=== PATIENT | male | born 1945 | race Caucasian/White ===

== ENCOUNTER 2019-08-08 05:58 | Emergency (ER) | payer MEDICARE, OTHER ==
[2019-08-08 07:43] LABS: ABSOLUTE EOSINOPHILS # (AUTO) 0.1 10^3/uL (0.0-0.6); ABSOLUTE LYMPHOCYTES (AUTO) 1.2 10^3/uL (0.5-4.7); ABSOLUTE MONOCYTES (AUTO) 0.8 10^3/uL (0.1-1.4); ABSOLUTE NEUT (AUTO) 5.5 10^3/uL (1.7-8.2); BASOPHILS % (AUTO) 0.4 % (0-2); EOSINOPHILS % (AUTO) 1.5 % (0-6); HEMATOCRIT 36.3 % (37.9-51.0); HEMOGLOBIN 12.7 g/dL (13.5-17.0); MEAN CORPUSCULAR HEMOGLOBIN 31.3 pg (27.0-33.4); MEAN CORPUSCULAR HGB CONC 35.1 g/dL (32.0-36.0); MEAN CORPUSCULAR VOLUME 89 fl (80-97); MONOCYTES % (AUTO) 10.1 % (3-13); PLATELET COUNT 261 10^3/uL (150-450); RED BLOOD COUNT 4.07 10^6/uL (4.35-5.55); RED CELL DISTRIBUTION WIDTH 13.9 % (11.5-14.0); TOTAL CELLS COUNTED % (AUTO) 100 %; WHITE BLOOD COUNT 7.6 10^3/uL (4.0-10.5)
[2019-08-08 07:58] LABS: ALBUMIN 3.7 g/dL (3.5-5.0); ALKALINE PHOSPHATASE 105 U/L (38-126); ANION GAP 8 (5-19); ASPARTATE AMINO TRANSFERASE 26 U/L (17-59); BILIRUBIN,DIRECT 0.1 mg/dL (0.0-0.4); BILIRUBIN,TOTAL 0.5 mg/dL (0.2-1.3); BLOOD UREA NITROGEN 15 mg/dL (7-20); CARBON DIOXIDE 25 mmol/L (22-30); CHLORIDE 107 mmol/L (98-107); CREATINE KINASE 49 U/L (55-170); GLUCOSE 104 mg/dL (75-110); POTASSIUM 4.4 mmol/L (3.6-5.0); TOTAL PROTEIN 6.8 g/dL (6.3-8.2)
[2019-08-08 08:09] LABS: CREATINE KINASE MB 0.72 ng/mL (<4.55)
[2019-08-08 08:14] LABS: TROPONIN I < 0.012 ng/mL
--- NOTE | 2019-08-08 08:40 | RADIOLOGY REPORT (SQ) ---
EXAM DESCRIPTION: CHEST SINGLE VIEW COMPLETED DATE/TIME: 08/08/2019 7:36 am REASON FOR STUDY: chest pain COMPARISON: 10/04/2013 EXAM PARAMETERS: NUMBER OF VIEWS: One view. TECHNIQUE: Single frontal radiographic view of the chest acquired. RADIATION DOSE: NA LIMITATIONS: None. FINDINGS: LUNGS AND PLEURA: No opacities, masses or pneumothorax. No pleural effusion. MEDIASTINUM AND HILAR STRUCTURES: No masses. Contour normal. HEART AND VASCULAR STRUCTURES: Heart normal in size. Normal vasculature. BONES: No acute findings. HARDWARE: None in the chest. OTHER: No other significant finding. IMPRESSION: NO ACUTE RADIOGRAPHIC FINDING IN THE CHEST. TECHNICAL DOCUMENTATION: JOB ID: [id number] [employer]- All Rights Reserved Reading location - IP/workstation name: [email or web address]
--- NOTE | 2019-08-08 10:18 | ER Document Report ---
Entered by GINNY LUGO SCRIBE 08/08/19 0831 Acting as scribe for:CLARISSE LEMOS MD ED Cardiac - General Chief Complaint: Chest Pain Stated Complaint: CHEST PAIN Time Seen by Provider: 08/08/19 08:17 Primary Care Provider: BEATRIZ MONTGOMERY MD [NO LOCAL MD] - Follow up tomorrow RAFIA SHIRLEY PA [Primary Care Provider] - Follow up as needed Mode of Arrival: Ambulatory Information source: Patient Notes: 74-year-old male with coronary artery disease on Ranexa who presents to the emergency department today with complaints of chest pain with associated diaphoresis. Patient states over the last 18 months he has had to take about 15 nitroglycerin. Patient states his pain usually resolves with one nitroglycerin but today he had to take 2 and he usually does not have diaphoresis like he did today so he decided to come in. Patient had an NSTEMI on 09/16/2013 and was sent to [facility], no stents were placed at that time. On 05/23/2016 in [place] the patient was having chest pain, had a catheterization performed and 2 stents were placed without NE. The patient did take all of his regular morning medications today. TRAVEL OUTSIDE OF THE [place] IN LAST 30 DAYS: No - Related Data Allergies/Adverse Reactions: No Known Allergies Allergy (Verified 08/08/19 07:44) Home Medications: bidamlodipine 10 mg asa 325 mg qday. atorvastatin 80 mg cilostazol 50 m tab. clopidogrel 75 mg po isosorbide mono ER 60 m qam. lisinopril 40 mg qday metoprolol ER 50 mg. ntg 1/150 sl prn ranexa 500 mg bid Past Medical History - General Information source: Patient - Social History Smoking Status: Current Some Day Smoker Cigarette use (# per day): Yes Frequency of alcohol use: None Drug Abuse: None Lives with: Family Family History: Reviewed & Not Pertinent Patient has suicidal ideation: No Patient has homicidal ideation: No - Past Medical History Cardiac Medical History: Reports: Hx Coronary Artery Disease, Hx Heart Attack - stents x 2, Hx Hypercholesterolemia, Hx Hypertension Past Surgical History: Reports: Hx Cardiac Catheterization - stents x 2, Hx Orthopedic Surgery - back, right knee, Hx Tonsillectomy - Immunizations Hx Diphtheria, Pertussis, Tetanus Vaccination: No Review of Systems - Review of Systems Constitutional: See HPI, Diaphoresis EENT: No symptoms reported Cardiovascular: See HPI, Chest pain Respiratory: No symptoms reported Gastrointestinal: No symptoms reported Genitourinary: No symptoms reported Male Genitourinary: No symptoms reported Musculoskeletal: No symptoms reported Skin: No symptoms reported Hematologic/Lymphatic: No symptoms reported Neurological/Psychological: No symptoms reported -: Yes All other systems reviewed and negative Physical Exam - Vital signs Vitals: Temp Pulse Resp BP Pulse Ox 97.3 F 70 16 166/66 H 97 08/08/19 06:13 08/08/19 06:13 08/08/19 06:13 08/08/19 06:13 08/08/19 06:13 - Notes Notes: Physical Exam: General: Alert, appears well. HEENT: Normocephalic. Atraumatic. PERRL. Extraocular movements intact. Oropharynx clear. Neck: Supple. Non-tender. Respiratory: No respiratory distress. Clear and equal breath sounds bilaterally. Cardiovascular: Regular rate and rhythm. Abdominal: Normal Inspection. Non-tender. No distension. Normal Bowel Sounds. Back: No gross abnormalities. Extremities: Moves all four extremities. Upper extremities: Normal inspection. Normal ROM. Lower extremities: Normal inspection. No edema. Normal ROM. Neurological: Normal cognition. AAOx4. Normal speech. Psychological: Normal affect. Normal Mood. Skin: Warm. Dry. Normal color. Course - Vital Signs Vital signs: Temp Pulse Resp BP Pulse Ox 97.9 F 70 18 153/71 H 97 08/08/19 13:59 08/08/19 06:13 08/08/19 13:01 08/08/19 13:00 08/08/19 13:01 - Laboratory Result Diagrams: 08/08/19 07:32 08/08/19 07:32 Laboratory results interpreted by me: 08/08/19 08/08/19 07:32 07:32 RBC 4.07 L Hgb 12.7 L Hct 36.3 L Creatinine 1.46 H Est GFR ( Amer) 57 L Est GFR (MDRD) Non-Af 47 L Creatine Kinase 49 L - Diagnostic Test Radiology reviewed: Image reviewed, Reports reviewed - No acute radiographic findings in the chest. - EKG Interpretation by Ms EKG shows normal: Sinus rhythm, Ronceverte, Intervals, ST-T Waves. abnormal: QRS Complexes - Old lateral wall NE Rate: Normal - 61 Rhythm: NSR Ronceverte/QRS: RBBB Discharge - Discharge Clinical Impression: Chest pain due to coronary artery disease Condition: Stable Disposition: [facility] Referrals: RAFIA SHIRLEY PA [Primary Care Provider] - Follow up as needed BEATRIZ MONTGOMERY MD [NO LOCAL MD] - Follow up tomorrow Scribe Attestation: 08/08/19 09:17 I personally performed the services described in the documentation, reviewed and edited the documentation which was dictated to the scribe in my presence, and it accurately records my words and actions. I personally performed the services described in the documentation, reviewed and edited the documentation which was dictated to the scribe in my presence, and it accurately records my words and actions.
[2019-08-08] MEDS ORDERED: NITROGLYCERIN 2% OINTMENT 1 GM PACKET TP ONE (12:54)
[2019-08-08 13:57] VITALS: BP 153/71
--- NOTE | 2019-08-08 14:44 | EKG REPORT ---
SEVERITY:- ABNORMAL ECG - SINUS RHYTHM RIGHT BUNDLE BRANCH BLOCK PROBABLE LATERAL INFARCT, OLD : Confirmed by: Ingrid Morillo MD 08-Aug-2019 14:43:15
== END 2019-08-08 14:20 | disposition short-term general hospital (02) ==
LOC: ER 05:58
DX: R07.9 Chest pain, unspecified (principal); I25.10 Atherosclerotic heart disease of native coronary artery without angina pectoris; R61 Generalized hyperhidrosis; I25.2 Old myocardial infarction; F17.210 Nicotine dependence, cigarettes, uncomplicated; I10 Essential (primary) hypertension
CPT/HCPCS: 36415; 71045; 80053; 82550; 82553; 84484; 85025; 93005; 93010; 99285